=== PATIENT | male | born 1990 | race Caucasian/White ===

== ENCOUNTER 2018-06-09 12:30 | Emergency (ER) | payer SELFPAY ==
[2018-06-09 13:17] VITALS: BP 116/54
[2018-06-09] MEDS ORDERED: Ketorolac INJ* 60 MG/2 ML VIAL IM ONE (14:42)
[2018-06-09] MEDS ORDERED: Ondansetron ODT TAB* 4 MG PO ONE (14:42)
--- NOTE | 2018-06-09 15:05 | UC ---
Headache HPI - HPI Summary HPI Summary: Pt presents with c/o intermittent BECERRA since October 2017. Pt states he has been getting BECERRA aproximately 1-3 times per week but does not take any NSAIDS for pain management. He reports that he has "fuzzy light" with BECERRA and he finds that he becomes sleepy and falls asleep as a way to get rid of the BECERRA. Pt denies, todays BECERRA is the worse one he has ever had, denies, Head injury , denies change of vision. New symptoms over the last 3 days is nausea with onset of todays BECERRA. - History Of Current Complaint Chief Complaint: UCHeadache Stated Complaint: SEVERE HEADACHES Time Seen by Provider: 06/09/18 14:31 Hx Obtained From: Patient Onset/Duration: Gradual Onset, Lasting Hours, Still Present Onset Of Symptoms: Gradual, Still Present Initially Headache Was: Moderate Currently Pain Is: Moderate Pain Intensity: 7 Timing: Intermittent, Lasting:, Hours Character: Dull, Throbbing, Pressure, Migraine Location of Headache: Diffuse Aggravating Factor(s): Position Change Allevating Factor(s): Rest Associated Signs And Symptoms: Positive: Nausea - Risk Factors SAH Risk Factors: Negative Meningitis Risk Factors: Negative SDH Risk Factors: Male - Allergies/Home Medications Allergies/Adverse Reactions: Allergies Allergy/AdvReac Type Severity Reaction Status Date / Time No Known Allergies Allergy Verified 06/09/18 13:17 PMH/Surg Hx/FS Hx/Imm Hx Previously Healthy: Yes - Surgical History Surgical History: Yes Surgery Procedure, Year, and Place: cardiac - Family History Known Family History: Positive: Cardiac Disease - Social History Occupation: Employed Full-time Lives: With Family Alcohol Use: Occasionally Substance Use Type: None Smoking Status (MU): Former Smoker Have You Smoked in the Last Year: No - Immunization History Vaccination Up to Date: No Review of Systems All Other Systems Reviewed And Are Negative: Yes Constitutional: Positive: Negative Skin: Positive: Negative Eyes: Positive: Negative ENT: Positive: Negative Respiratory: Positive: Negative Cardiovascular: Positive: Negative Gastrointestinal: Positive: Negative Genitourinary: Positive: Negative Motor: Positive: Negative Neurovascular: Positive: Negative Musculoskeletal: Positive: Negative Neurological: Positive: Headache Psychological: Positive: Negative Is Patient Immunocompromised?: No Physical Exam Triage Information Reviewed: Yes Appearance: Well-Appearing Vital Signs: Initial Vital Signs Temp 99.8 F 06/09/18 13:14 Pulse 62 02/20/19 13:14 Resp 17 06/09/18 13:14 BP 116/54 06/09/18 13:14 Pulse Ox 100 06/09/18 13:14 Vital Signs Reviewed: Yes Eye Exam: Normal ENT Exam: Normal Dental Exam: Normal Dental: Positive: Abscess @ Neck exam: Normal Respiratory Exam: Normal Cardiovascular Exam: Normal Musculoskeletal Exam: Normal Neurological Exam: Normal Psychological Exam: Normal Skin Exam: Normal Headache Course/Dx - Course Course Of Treatment: Pt reported that he did not feel any better after getting toradol injection. Pt was recommended to go directly to ER for further testing, evaluation and treatment. - Differential Dx/Diagnosis Differential Diagnosis/HQI/PQRI: Migraine Provider Diagnosis: Migraine Discharge - Sign-Out/Discharge Documenting (check all that apply): Patient Departure All imaging exams completed and their final reports reviewed: No Studies - Discharge Plan Condition: Stable Disposition: HOME-RECOMMEND TO ED Prescriptions: Ondansetron HCl [Zofran] 8 mg PO Q8H PRN #15 tablet PRN Reason: Nausea predniSONE TAB* [Deltasone 20 MG TAB*] 20 mg PO DAILY #4 tab Patient Education Materials: Migraine Headache (ED) Forms: *Work Release Referrals: No Primary Care Phys,NOPCP [Primary Care Provider] - Additional Instructions: IT IS RECOMMENDED THAT YOU GO DIRECTLY TO THE CLOSEST EMERGENCY ROOM FOR FURTHER EVALUATION AND TESTING. - Billing Disposition and Condition Condition: STABLE Disposition: Home-Recommend to ED
== END 2018-06-09 15:46 | disposition home health service (06) ==
LOC: UCEAST 12:30
DX: G43.909 Migraine, unspecified, not intractable, without status migrainosus (principal); Z87.891 Personal history of nicotine dependence
CPT/HCPCS: 96372; 99212; A9270-GY; G0463; J1885

== ENCOUNTER 2018-08-19 23:30 | Emergency (ER) | payer SELFPAY ==
--- NOTE | 2018-08-20 00:13 | ED ---
Abdominal Pain/Male - HPI Summary HPI Summary: 28 year old male presents to the emergency department for evaluation of LUQ pain. This problem has been present for a few hours and is constant. Pt describes the pain as "sharp" and "tight" and rates it as an 8/10. Nothing makes the pain and moving makes it worse. Pt also reports a mid epigastric pain that has been present for 1 week and nausea. He denies any fever, vomiting, diarrhea, constipation, dysuria, dark colored urine, SOB, and chest pain. - History of Current Complaint Chief Complaint: EDAbdPain Stated Complaint: SEVERE ABD PAIN PER PT Time Seen by Provider: 08/20/18 00:02 Hx Obtained From: Patient Pain Intensity: 8 - Allergies/Home Medications Allergies/Adverse Reactions: Allergies Allergy/AdvReac Type Severity Reaction Status Date / Time No Known Allergies Allergy Verified 06/09/18 13:17 PMH/Surg Hx/FS Hx/Imm Hx Previously Healthy: Yes - Surgical History Surgery Procedure, Year, and Place: cardiac at age 11 months Infectious Disease History: No Infectious Disease History: Denies: Traveled Outside the [place] in Last 30 Days - Family History Known Family History: Positive: Cardiac Disease - Social History Alcohol Use: Occasionally Substance Use Type: Reports: None Smoking Status (MU): Former Smoker Have You Smoked in the Last Year: No Review of Systems Negative: Fever, Fatigue ENT: Negative Negative: Sore Throat Cardiovascular: Negative Negative: Palpitations, Chest Pain Respiratory: Negative Negative: Shortness Of Breath, Cough Positive: Abdominal Pain, Nausea. Negative: Vomiting, Diarrhea Positive: no symptoms reported. Negative: burning, dysuria, frequency Musculoskeletal: Negative Skin: Negative Negative: Rash Neurological: Negative Negative: Headache, Weakness, Numbness All Other Systems Reviewed And Are Negative: Yes Physical Exam Triage Information Reviewed: Yes Vital Signs On Initial Exam: Initial Vitals Temp Pulse Resp BP Pulse Ox 98.1 F 72 20 116/78 98 08/19/18 23:39 08/19/18 23:39 08/19/18 23:39 08/19/18 23:39 08/19/18 23:39 Vital Signs Reviewed: Yes Appearance: Positive: Well-Appearing, No Pain Distress, Well-Nourished Skin: Positive: Warm, Skin Color Reflects Adequate Perfusion, Dry, Other - Linear surgical scar mid thorax Head/Face: Positive: Normal Head/Face Inspection Eyes: Positive: Normal, EOMI ENT: Positive: Normal ENT inspection, Hearing grossly normal Neck: Positive: Supple, Nontender Respiratory/Lung Sounds: Positive: Clear to Auscultation, Breath Sounds Present Cardiovascular: Positive: Normal, RRR, Pulses are Symmetrical in both Upper and Lower Extremities Abdomen Description: Positive: No Organomegaly, Soft, Other: - Mild epigastric tenderness. Negative: CVA Tenderness (R), CVA Tenderness (L) Bowel Sounds: Positive: Present Musculoskeletal: Positive: Normal, Strength/ROM Intact Neurological: Positive: Normal, Sensory/Motor Intact, Alert, Oriented to Person Place, Time Psychiatric: Positive: Normal, Affect/Mood Appropriate Diagnostics - Vital Signs Vital Signs Temp Pulse Resp BP Pulse Ox 08/19/18 23:39 98.1 F 72 20 116/78 98 - Laboratory Result Diagrams: 08/20/18 00:02 08/20/18 00:02 Lab Statement: Any lab studies that have been ordered have been reviewed, and results considered in the medical decision making process. Abdominal Pain Male Course/Dx - Course Course Of Treatment: Pt presents with diffuse LUQ pain, nausea, and epigastric tenderness. He denies any fever, vomiting, diarrhea, or urinary symptoms. His exam, CBC, and CMP were unremarkable. KUB x-ray is consistent with constipation. Pt given maalox, pepcid, and carafate. He was instructed to drink plenty of fluids, drink natural fruit juices, and perform abdominal massages. Pt to follow up with primary care and return to ED with any new/worsening symptoms. Assessment/Plan: Patient was seen in conjunction with the physician phlebotomy lab assistant student. All history, physical exam findings and medical decision-making represent my work. Patient with left upper quadrant pain and KUB findings consistent with constipation. Treat symptomatically. - Diagnoses Differential Diagnosis/HQI/PQRI: Constipation, Diverticulitis, Pancreatitis, Peptic Ulcer Disease, Renal Colic, Ureteral Stone Provider Diagnoses: Acute constipation, Intermittent left upper quadrant abdominal pain Discharge - Sign-Out/Discharge Documenting (check all that apply): Patient Departure Patient Received Moderate/Deep Sedation with Procedure: No - Discharge Plan Condition: Improved Disposition: HOME Prescriptions: Hyoscyamine Sulfate [Levsin/Sl] 0.125 mg SL Q4H PRN #30 sub PRN Reason: cramping Polyethylene Glycol 3350 BTL* [Miralax] 17 g PO TID PRN #1 btl PRN Reason: Constipation Patient Education Materials: Constipation (ED), High Fiber Diet (ED), Acute Abdominal Pain (ED) Forms: *Work Release Referrals: [facility] [Outside] [facility] [place] [facility] [Outside] Additional Instructions: Drink plenty of fluids. Natural fruit juices such as apple or prune juice may help. Abdominal massage and exercises may help. Return with fever, worse, vomiting, new symptoms or other concerns. Call the [facility] first thing in the morning and they can schedule follow-up appointment for you. - Billing Disposition and Condition Condition: IMPROVED Disposition: Home - Attestation Statements Document Initiated by Prabha: No
[2018-08-20] MEDS ORDERED: Famotidine TAB* 20 MG PO ONE (00:17)
[2018-08-20] MEDS ORDERED: Sucralfate TAB* 1 GM PO ONE (00:18)
[2018-08-20] MEDS ORDERED: Al Hydrox/Mg Hydrox/Simet LIQ* 30 ML UDC PO ONE (00:18)
[2018-08-20 00:19] LABS: ABS Eosinophils 0.1 10^3/ul (0-0.6); ABS Lymphocytes 2.6 10^3/ul (1.0-4.8); ABS Monocytes 0.4 10^3/ul (0-0.8); ABS Neutrophils 2.5 10^3/ul (1.5-7.7); Hematocrit 45 % (42-52); Hemoglobin 15.1 g/dL (14.0-18.0); Lymphocyte % 46.2 %; Mean Corpuscular HGB Conc 34 g/dL (31-36); Mean Corpuscular Hemoglobin 30 pg (27-31); Mean Corpuscular Volume 87 fL (80-94); Mean Platelet Volume 8.4 fL (7.4-10.4); Nucleated Red Blood Cells % 0.1; Platelet Count 230 10^3/uL (150-450); Red Blood Count 5.12 10^6 /uL (4.18-5.48); Red Cell Distribution Width 14 % (10.5-15); White Blood Count 5.7 10^3/uL (3.5-10.8)
[2018-08-20 00:32] LABS: Albumin 4.5 g/dL (3.2-5.2); Albumin/Globulin Ratio 1.9 (1-3); BUN/Creatinine Ratio 14.3 (8-20); Calcium 9.6 mg/dL (8.6-10.3); EGFR African American 103.3 (>60); EGFR Non-African American 85.4 (>60); Globulin 2.4 g/dL (2-4); Potassium 3.8 mmol/L (3.5-5.0); Total Bilirubin 0.7 mg/dL (0.2-1.0); Total Protein 6.9 g/dL (6.4-8.9)
[2018-08-20 01:18] VITALS: BP 141/79
== END 2018-08-20 01:16 | disposition home or self-care (01) ==
LOC: ED 23:30
DX: K59.00 Constipation, unspecified (principal); R10.12 Left upper quadrant pain; R11.0 Nausea; R10.816 Epigastric abdominal tenderness; Z87.891 Personal history of nicotine dependence
CPT/HCPCS: 36415; 74018; 80053; 82150; 83690; 85025; 99282; A9270-GY

== ENCOUNTER 2018-09-01 21:23 | Emergency (ER) | payer SELFPAY ==
[2018-09-01 21:40] VITALS: BP 134/69
[2018-09-01] MEDS ORDERED: Ibuprofen TAB* 600 MG PO ONE (21:40)
[2018-09-01] MEDS ORDERED: HYDROcodone/ACETAMIN 5-325 MG* 1 TAB PO ONE ×2 (21:41→22:25)
--- NOTE | 2018-09-01 21:54 | UC ---
Lower Extremity/Ankle HPI - HPI Summary HPI Summary: 28-year-old male comes in with a chief complaint of left quadriceps pain. Patient was playing softball and he was running any felt sudden onset of pain in the left quadriceps area. Pain is worse with any kind of ambulation. Over the course of 30 minutes the pain increased. No numbness. It hurts excessively try to extend the knee. Some pain up into the left hip the worst pain is in the anterior distal thigh about 10 cm proximal to the knee. Denies any knee pain. - History of Current Complaint Chief Complaint: UCLowerExtremity Stated Complaint: LEG INJURY Time Seen by Provider: 09/01/18 21:33 Pain Intensity: 9 - Allergies/Home Medications Allergies/Adverse Reactions: Allergies Allergy/AdvReac Type Severity Reaction Status Date / Time No Known Allergies Allergy Verified 09/01/18 21:40 PMH/Surg Hx/FS Hx/Imm Hx Previously Healthy: Yes - Surgical History Surgical History: Yes Surgery Procedure, Year, and Place: cardiac at age 11 months - Family History Known Family History: Positive: Cardiac Disease - Social History Alcohol Use: Occasionally Substance Use Type: None Smoking Status (MU): Former Smoker Type: Smokeless Tobacco Have You Smoked in the Last Year: No - Immunization History Vaccination Up to Date: No Review of Systems All Other Systems Reviewed And Are Negative: Yes Constitutional: Positive: Negative Skin: Positive: Negative Eyes: Positive: Negative ENT: Positive: Negative Respiratory: Positive: Negative Cardiovascular: Positive: Negative Gastrointestinal: Positive: Negative Motor: Positive: Decreased ROM Neurovascular: Positive: Negative Musculoskeletal: Positive: Decreased ROM, Other: - SEE HPI Neurological: Positive: Negative Psychological: Positive: Negative Is Patient Immunocompromised?: No Physical Exam Triage Information Reviewed: Yes Appearance: Well-Appearing, Well-Nourished, Pain Distress - MODERATE WITH ROM LEFT LEG Vital Signs: Initial Vital Signs Temp 98.6 F 09/01/18 21:36 Pulse 87 09/01/18 21:36 Resp 17 09/01/18 21:36 BP 134/69 09/01/18 21:36 Pulse Ox 100 09/01/18 21:36 Vital Signs Reviewed: Yes Eye Exam: Normal Eyes: Positive: Conjunctiva Clear Neck: Positive: Supple Respiratory: Positive: No respiratory distress Musculoskeletal: Positive: Other: - Patient is tender to palpation in the left anterior thigh. Also tender to palpation about 10 cm proximal from the left knee. The knee itself is nontender to palpation. The tenderness in the anterior thigh extends all the way up to the hip. With a great deal of pain the patient is able to lift his leg and slightly extend the knee. No sensation deficit normal capillary refill. Neurological: Positive: Alert Psychological Exam: Normal Psychological: Positive: Age Appropriate Behavior Skin Exam: Normal Lower Extremity Course/Dx - Course Course Of Treatment: I discussed the x-rays with the patient. I do not see any fractures radiologist reading is pending. By examination and history of the patient's torn at least part of his quadricep muscle. He was able to raise up his foot with some knee extension so on examination at this time it does not appear to be a complete quadriceps separation. Patient declined any Diego wrap or ice as it isn't too much pain. Patient to get crutches. Plan is anti-inflammatories pain medicines as needed. Follow-up with sports medicine or orthopedics. I let the patient know that if he is not able to extend his knee he must get evaluated right away. - Differential Dx/Diagnosis Provider Diagnosis: Strain of left quadriceps Discharge - Sign-Out/Discharge Documenting (check all that apply): Patient Departure All imaging exams completed and their final reports reviewed: No - Discharge Plan Condition: Stable Disposition: HOME Prescriptions: Cyclobenzaprine TAB* [Flexeril 10 MG TAB*] 10 mg PO TID PRN #15 tab MDD 3 PRN Reason: Pain HYDROcodone/ACETAMIN 5-325 MG* [[place] 5-325 TAB*] 1 tab PO Q4H PRN #30 tab MDD 6 PRN Reason: Pain Ibuprofen TAB* [Motrin TAB* 600 MG] 600 mg PO Q6H PRN #20 tab PRN Reason: Pain Patient Education Materials: Crutch Instructions (ED), Muscle Strain (ED) Forms: *Work Release Referrals: Jean Pierre Martinez MD [Medical Doctor] - [facility] [Provider Group] Additional Instructions: FOLLOW UP WITH SPORTS MEDICINE OR ORTHOPEDICS. GET RECHECKED SOONER IF YOUR CONDITION WORSENS OR ANY QUESTIONS OR CONCERNS. - Billing Disposition and Condition Condition: STABLE Disposition: Home
== END 2018-09-01 22:42 | disposition home or self-care (01) ==
LOC: UCEAST 21:23
DX: S76.112A Strain of left quadriceps muscle, fascia and tendon, initial encounter (principal); Z87.891 Personal history of nicotine dependence; X58.XXXA Exposure to other specified factors, initial encounter; Y93.02 Activity, running; Y92.9 Unspecified place or not applicable
CPT/HCPCS: 99213; A9270-GY; G0463

== ENCOUNTER 2018-10-26 08:33 | Emergency (ER) | payer SELFPAY ==
[2018-10-26 08:51] VITALS: BP 109/60
--- NOTE | 2018-10-26 10:14 | UC ---
Lower Extremity/Ankle HPI - HPI Summary HPI Summary: 28 y/o male presents to the urgent care c/o while running yesterday felt and heard a pop in the back upper thigh and arrives with pain in same - History of Current Complaint Chief Complaint: UCLowerExtremity Stated Complaint: UPPER LEG INJURY Time Seen by Provider: 10/26/18 10:12 Hx Obtained From: Patient Pain Intensity: 8 - Allergies/Home Medications Allergies/Adverse Reactions: Allergies Allergy/AdvReac Type Severity Reaction Status Date / Time No Known Allergies Allergy Verified 10/26/18 08:51 Home Medications: Home Medications NK [No Home Medications Reported] 10/26/18 [History Confirmed 10/26/18] PMH/Surg Hx/FS Hx/Imm Hx - Surgical History Surgical History: Yes Surgery Procedure, Year, and Place: cardiac at age 11 months - Family History Known Family History: Positive: Cardiac Disease - Social History Alcohol Use: Occasionally Substance Use Type: None Smoking Status (MU): Former Smoker Type: Smokeless Tobacco Have You Smoked in the Last Year: No - Immunization History Vaccination Up to Date: No Physical Exam - Summary Physical Exam Summary: Vital Signs Reviewed: Yes Appearance: Well-Appearing, No Pain Distress, Well-Nourished, male sitting in the examining table w/o any apparent pain distress Eyes: Positive: Conjunctiva Clear - PERRLA< RODNEY, fundi grossly WNL ENT: Positive: Normal ENT inspection, Hearing grossly normal, Pharynx normal, TMs normal, Uvula midline Neck: Positive: Supple, Nontender, No Lymphadenopathy Respiratory: Positive: Chest non-tender, Lungs clear, Normal breath sounds, No respiratory distress Cardiovascular: Positive: RRR, No Murmur, Pulses Normal, Brisk Capillary Refill Abdomen Description: Positive: Nontender, No Organomegaly, Soft. Negative: CVA Tenderness (R), CVA Tenderness (L) Bowel Sounds: Positive: Present Extremities: R/L extremity with/without deformity or asymmetry when compared to the R/L. No soft tissue swelling or edema. No overlying erythema, warmth, discoloration. No lesions or break in skin integrity. Diameter of calves cm. Soft tissues of posterior lower legs are soft, supple, nontender and no palpable cords or evidence of thrombophlebitis. No evidence of gangrene or compartment syndrome. Medial thigh is without soft tissue swelling or tender to palpation. Negative Homans sign. Possible superficial thrombophlebitis with palpable, tender cords. No proximal lymphangitis or lymphadenopathy. Positive sensation over B/l lower legs, positive pulses, capillary refill intact and brisk. Neurological Exam: Normal Psychological Exam: Normal Skin Exam: Normal Triage Information Reviewed: Yes Vital Signs: Initial Vital Signs Temp 98.5 F 10/26/18 08:47 Pulse 85 10/26/18 08:47 Resp 16 10/26/18 08:47 BP 109/60 10/26/18 08:47 Pulse Ox 100 10/26/18 08:47 Lower Extremity Course/Dx - Differential Dx/Diagnosis Differential Diagnosis/HQI/PQRI: Contusion, DVT, Fracture (Closed), Sprain, Strain, Tendonitis, Other - muscle tear, hematoma Provider Diagnosis: Right hamstring muscle strain Discharge - Sign-Out/Discharge Documenting (check all that apply): Patient Departure - D/c home All imaging exams completed and their final reports reviewed: No Studies - Discharge Plan Condition: Stable Disposition: HOME Patient Education Materials: Muscle Strain (ED) Forms: *Work Release Referrals: [facility] [place] [facility] [Outside] - 3 Days [facility] [Provider Group] - 3 Days Jean Pierre Conley MD [Medical Doctor] - 3 Days Additional Instructions: 1- Please continue taking [place] or Ibuprofen PO as directed you have at home to alleviate symptoms of pain and swelling 2- Take Flexeril PO as directed for muscle spasm. Please do not drive while taking the medication. 3- Keep your Thigh immobilized w/ Diego bandage and use the crutches you have at home to avoid weight bearing. Avoid strenuous exercise or heavy lifting 4- Please follow up with Orthopedic Dr conley or Sports medicine in 3 days for further management in your muscle strain. If pain becomes sever despite mediation please go immediately to the ER for further management - Billing Disposition and Condition Condition: STABLE Disposition: Home
[2018-10-26] MEDS ORDERED: Ketorolac INJ* 30 MG/ML 1 ML VIAL IM ONE (10:38)
== END 2018-10-26 12:09 | disposition home or self-care (01) ==
LOC: UCEAST 08:33
DX: S76.811A Strain of other specified muscles, fascia and tendons at thigh level, right thigh, initial encounter (principal); X50.0XXA Overexertion from strenuous movement or load, initial encounter; Y93.02 Activity, running; Y92.9 Unspecified place or not applicable; Y99.8 Other external cause status; Z87.891 Personal history of nicotine dependence
CPT/HCPCS: 96372; 99211; G0463; J1885

== ENCOUNTER 2019-01-26 14:00 | Emergency (ER) | payer SELFPAY ==
[2019-01-26 14:12] VITALS: BP 119/71
--- NOTE | 2019-01-26 14:34 | UC ---
Back Pain HPI - HPI Summary HPI Summary: Patient is a 28yo male presenting with back pain x1 hour after he states it twisted when he tried to catch a wheelbarrow he was using that slipped off the sidewalk. Patient notes stabbing pain at first that had turned into a throbbing pain at rest. Notes sharp pain with rapid movement. Notes radiating pain up left side of back. Notes tingling sensation in left lower back. Denies numbness. Denies neck pain. - History of Current Complaint Chief Complaint: UCBackPain Stated Complaint: BACK INJURY Hx Obtained From: Patient Onset/Duration: Sudden Onset, Lasting Hours Timing: Constant Severity Initially: Severe Severity Currently: Severe Pain Intensity: 7 Pain Scale Used: 0-10 Numeric - Allergies/Home Medications Allergies/Adverse Reactions: Allergies Allergy/AdvReac Type Severity Reaction Status Date / Time No Known Allergies Allergy Verified 01/26/19 14:11 PMH/Surg Hx/FS Hx/Imm Hx Previously Healthy: Yes - Surgical History Surgical History: Yes Surgery Procedure, Year, and Place: cardiac at age 11 months - Family History Known Family History: Positive: Cardiac Disease - Social History Alcohol Use: Occasionally Substance Use Type: None Smoking Status (MU): Former Smoker Type: Smokeless Tobacco Have You Smoked in the Last Year: No - Immunization History Vaccination Up to Date: No Review of Systems All Other Systems Reviewed And Are Negative: Yes Constitutional: Positive: Negative Respiratory: Negative: Shortness Of Breath Cardiovascular: Positive: Negative. Negative: Palpitations, Chest Pain Gastrointestinal: Positive: Negative Genitourinary: Positive: Negative Motor: Positive: Negative Neurovascular: Positive: Negative. Negative: Decreased Sensation Musculoskeletal: Positive: Arthralgia, Decreased ROM, Myalgia. Negative: Edema Neurological: Positive: Paresthesia. Negative: Numbness Psychological: Positive: Negative Physical Exam Triage Information Reviewed: Yes Appearance: Well-Appearing, Well-Nourished, Pain Distress Vital Signs: Initial Vital Signs Temp 98 F 01/26/19 14:08 Pulse 78 01/26/19 14:08 Resp 16 01/26/19 14:08 BP 119/71 01/26/19 14:08 Pulse Ox 100 01/26/19 14:08 Vital Signs Reviewed: Yes Eyes: Positive: Conjunctiva Clear ENT: Positive: Hearing grossly normal Neck: Positive: Supple Respiratory Exam: Normal Respiratory: Positive: Chest non-tender, Lungs clear, Normal breath sounds, No respiratory distress, No accessory muscle use. Negative: Crackles, Rhonchi, Stridor, Wheezing Cardiovascular Exam: Normal Cardiovascular: Positive: RRR. Negative: Tachycardia Musculoskeletal: Positive: Strength Intact, No Edema, ROM Limited @ - flexion and extension of hips, Other: - tenderness to palpation of left lumbar and thoracic areas. no midline tenderness to palpation Neurological Exam: Other - sensation grossly intact Neurological: Positive: Alert Psychological: Positive: Age Appropriate Behavior Skin Exam: Normal Diagnostics - Radiology lumbar spine Radiology Interpretation Completed By: Radiologist Summary of Radiographic Findings: FINDINGS: There is a mild lumbar scoliosis convex toward the left side. The vertebra otherwise in normal alignment. No fracture is seen. Disc spaces appear maintained. IMPRESSION: NO EVIDENCE FOR FRACTURE. thoracic spine Radiology Interpretation Completed By: Radiologist Summary of Radiographic Findings: FINDINGS: There is a mild dorsal scoliosis convex toward the right side as a normal limits. No fracture is seen. Disc spaces appear maintained. IMPRESSION: NO EVIDENCE FOR FRACTURE. Back Pain Course/Dx - Course Course Of Treatment: Discussed negative xrays with patient. Instructed him to take flexeril as prescribed for muscle spasms. He may also ice, heat, and take ibuprofen as directed for pain relief. Educated patient on flexeril and possible drowsiness. Instructed him to reduce his work load and physical activity while pain is present. Directed him to follow up with ortho if pain persists. Patient voiced understanding and agreed to the treatment plan. - Differential Dx/Diagnosis Provider Diagnosis: Low back strain Discharge ED - Sign-Out/Discharge Documenting (check all that apply): Patient Departure All imaging exams completed and their final reports reviewed: Yes - Discharge Plan Condition: Stable Disposition: HOME Prescriptions: Cyclobenzaprine TAB* [Flexeril 10 MG TAB*] 10 mg PO TID PRN #30 tab PRN Reason: Spasms Patient Education Materials: Low Back Strain (ED) Forms: *Work Release Referrals: [facility] [place] [facility] [Outside] - If Needed [facility] [Outside] - If Needed Jean Pierre Edwards MD [Medical Doctor] - If Needed Additional Instructions: As discussed, your xrays did not show any fractures. Take Flexeril as prescribed for muscle spasms. This drug may make you drowsy. Rest, ice, heat, and take ibuprofen as directed to help alleviate pain symptoms. Refrain from strenuous physical activity until pain has resolved. If symptoms persist or worsen, follow up with the [facility] or Orthopedics as listed below. - Billing Disposition and Condition Condition: STABLE Disposition: Home
== END 2019-01-26 15:30 | disposition home or self-care (01) ==
LOC: UCEAST 14:00
DX: S29.012A Strain of muscle and tendon of back wall of thorax, initial encounter (principal); Z87.891 Personal history of nicotine dependence; X50.1XXA Overexertion from prolonged static or awkward postures, initial encounter; Y92.9 Unspecified place or not applicable
CPT/HCPCS: 72070; 72100; 99212; G0463

== ENCOUNTER 2019-02-01 14:34 | Emergency (ER) | payer SELFPAY ==
--- OUTSIDE RECORDS SUMMARY | 2019-02-01 14:40 | XMS REPORT | Summary of Care ---
:[address] [facility] Address [address] [place] [address] Care Team Providers Name Role Phone Stated, Not Primary Care Provider Unavailable Reason for Referral Diagnostic Testing (Routine) Status Reason Specialty Diagnoses / Referred By Referred To Procedures Contact Contact Pending Review Diagnoses Status post atrial septal defect closure Dilated aortic root (HCC) Alexei, Procedures ECHOCARDIOGRAM TTE MD Brennen [address] [place] [address] Reason for Visit Reason Comments New Patient Pt. referred by Dr. Malgorzata Macario for Hx of Atrial Septal Defect Repair at 11 months old. Repaired at [facility] By Pedro Melton. Pt. seen also by Dr. Huertas. Pt. needs clearance for [facility] for entry to the [employer]. Encounter Details Date Type Department Care Team Description 01/20/2019 Office Visit Javier Linda, Status post atrial septal defect closure (Primary Dx); Cardiology MD Brennen Dilated aortic root (HCC); [address] [facility] RBBB (right bundle branch block) [place] [address] [place] [address] [phone] Allergies No Known Allergiesdocumented as of this encounter (statuses as of 01/20/2019) Medications No known medicationsdocumented as of this encounter (statuses as of 01/20/2019) Active Problems Problem Noted Date H/O congenital atrial septal defect (ASD) repair 01/20/2019 RBBB (right bundle branch block) 01/20/2019 Unspecified asthma(493.90) 07/22/2007 Injury, other and unspecified, unspecified site 08/05/2006 Other general symptoms(780.99) 01/03/2004 documented as of this encounter (statuses as of 01/20/2019) Immunizations Name Administration Dates Next Due DTAP Vaccine 12/29/1996, 09/24/1993, 03/07/1993, 1992, 1992 HIB 09/24/1993, 03/07/1993, 1992, 1992 Hepatitis B Vaccine 06/18/1993, 1992, 1992 MENINGOCOCCAL CONJUGATE VACCINE 12/09/2005 MMR VACCINE 12/29/1996, 09/24/1993 Polio - Inactivated Vaccine 12/29/1996, 09/24/1993, 1992, 1992 TDAP Vaccine 12/09/2005 documented as of this encounter Social History Tobacco Use Types Packs/Day Years Used Date Passive Smoke Exposure - Never Smoker 0 Smokeless Tobacco: Current User Chew Comments: 20 years Alcohol Use Drinks/Week oz/Week Comments Yes Rare Sex Assigned at Date Recorded Not on file Job Start Date Occupation Industry Not on file Not on file Not on file Travel History Travel Start Travel End No recent travel history available. documented as of this encounter Last Filed Vital Signs Vital Sign Reading Time Taken Comments Blood Pressure 108/58 01/20/2019 9:09 AM EDT Pulse 76 01/20/2019 9:09 AM EDT Temperature - - Respiratory Rate - - Oxygen Saturation - - Inhaled Oxygen Concentration - - Weight 97.5 kg (215 lb) 01/20/2019 9:09 AM EDT Height 185.4 cm (6' 1") 01/20/2019 9:09 AM EDT Body Mass Index 28.37 01/20/2019 9:09 AM EDT documented in this encounter Patient Instructions Patient InstructionsBrennen Linda MD - 01/20/2019 9:00 AM EDT No new medications today. Schedule an echocardiogram as we discussed. Assuming the echo looks good, there is no reason you can't participate in the [employer]. We'll hold off on scheduling follow up with me, but if you're still in the area a year from now, I'd recommend checking in around then. documented in this encounter Progress Notes Brennen Linda MD - 01/20/2019 9:00 AM EDT [facility] Note Patient: Ben Snider Date of : 1990 Date of Service: 01/20/2019 REFERRING PRACTITIONER: Malgorzata Macario PRIMARY CARE PROVIDER: Stated, Not Chief Complaint: Chief Complaint Patient presents with New Patient Pt. referred by Dr. Malgorzata Macario for Hx of Atrial Septal Defect Repair at 11 months old. Repaired at [facility] By Pedro Melton. Pt. seen also by Dr. Huertas. Pt. needs clearance for [facility] for entry to the [employer]. History of Present Illness: We had the pleasure of seeing Ben Snider today at the [facility] Cardiology Office. He is a 28-y.o. male with childhood asthma and large secundum ASD s/p suture repair by Dr. Vasquez at [facility] 03/18/1993 at the age of 11 months. He also has a chronic RBBB/LAFB and upper normal aortic root size by echo. Mr. Snider presents to cardiology clinic today for further evaluation of his congenital ASD s/p repair. He has a history as noted above, and has followed by Dr. Huertas for many years. He says that he last saw Dr. Huertas about a year ago and was cleared for the [employer] at that time. He also reports that he recently had PFTs done a few months ago and these were completely normal. 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 From a symptom standpoint, he reports feeling well. He played football, baseball, and did wrestlingin high school and had no problems with strenuous exertion. He remains physically active and does running and MMA without any CP or limiting dyspnea. Denies any palpitations, lightheadedness, or syncope. No orthopnea, paroxysmal dyspnea, or lower extremity edema. Had pretty significant asthma as a child but hasn't needed any therapy for that for many years. Patient Active Problem List Diagnosis Other general symptoms(780.99) Injury, other and unspecified, unspecified site Unspecified asthma(493.90) H/O congenital atrial septal defect (ASD) repair RBBB (right bundle branch block) Past Medical History: Diagnosis Date ADD (attention deficit disorder) past hx Asthma H/O congenital atrial septal defect (ASD) repair 01/20/2019 Ostium secundum type atrial septal defect s/p repair - sees ced RBBB (right bundle branch block) 01/20/2019 Past Surgical History: Procedure Laterality Date CO CARDIOVASC NUCL EXAM UNLISTED repair asd CO NUCLEAR EXAM UNLISTED blood vessel removed from penis No Known Allergies No current outpatient medications on file. No current facility-administered medications for this visit. Family History Problem Relation Age of Onset Heart No family history Social History Socioeconomic History Marital status: Single Spouse name: Not on file Number of children: Not on file Years of education: Not on file Highest education level: Not on file Occupational History Not on file Social Needs Financial resource strain: Not on file Food insecurity: Worry: Not on file Inability: Not on file Transportation needs: Medical: Not on file Non-medical: Not on file Tobacco Use Smoking status: Passive Smoke Exposure - Never Smoker Smokeless tobacco: Current User Types: Chew Tobacco comment: 20 years Substance and Sexual Activity Alcohol use: Yes Comment: Rare Drug use: No Sexual activity: Not on file Lifestyle Physical activity: Days per week: Not on file Minutes per session: Not on file Stress: Not on file Relationships Social connections: Talks on phone: Not on file Gets together: Not on file Attends mosque service: Not on file Active member of club or organization: Not on file Attends meetings of clubs or organizations: Not on file Relationship status: Not on file Intimate partner violence: Fear of current or ex partner: Not on file Emotionally abused: Not on file Physically abused: Not on file Forced sexual activity: Not on file Other Topics Concern Not on file Social History Narrative Lives with brother, sister, mother, mom's boyfriend Nursing Notes: Madhavi Timmons LPN 01/20/2019 9:11 AM Signed PATIENT: Ben Snider : 1990 DATE OF SERVICE: 01/20/2019 CARDIOLOGY AMBULATORY NURSING INTAKE FORM HISTORY COLLECTED BY CLINICAL STAFF: GRAYSON REVIEW OF SYSTEMS: GENERAL: Fever: no Weight loss/gain: no Fatigue: no Recent febrile illness: no NEUROLOGIC: Headache: no Syncope: no CVA/TIA: no Change in sensation: no CARDIOVASCULAR: Chest Pain: no Palpitations: no Orthopnea: no Rheumatic Fever (history of): no Edema: no RESPIRATORY: Cough: no Shortness Of Breath: no Hemoptysis: no Underlying Lung Disease: no GASTROINTESTINAL: Nausea: no Vomiting: no Constipation: no Diarrhea: no Melena: no PUD (history of): no Hematemesis: no Gastrointestinal Disorder: no GENITOURINARY: Hematuria: no Urinary Tract Infection(s): no Nocturia: no Prostate Problem(s): no HEMATOLOGIC: Easy bruising: no Bleeding: no MUSCULOSKELETAL/PERIPHERAL VASCULAR SYSTEM: Muscle Pain: no Muscle Cramping: no Stiffness: no Muscle Weakness: no BEHAVIORAL/PSYCH: Depression: no ENDOCRINE: Tremors: no Heat or cold intolerance: no Author: Madhavi Timmons LPN 01/20/2019 09:08 I have reviewed the ROS obtained by my nurse and concur as detailed above. Physical Exam: Vitals: 01/20/19 0909 BP: 108/58 BP Location: Right arm Patient Position: Sitting Pulse: 76 Weight: 215 lb (97.5 kg) Height: 6' 1" (1.854 m) Body mass index is 28.37 kg/m. General: Well nourished, alert 28-y.o. male in [facility] HEENT: anicteric, MMM, no E/E OP, conj pink Neck: JVP approx 4-5 cm above RA, no carotid bruits or LAD CV: RRR, normal s1/s2, no appreciable murmurs, rubs, or gallops. Sternotomy scar noted. Pulm: CTA bilaterally without wheezes, rhonchi, or rales. No increased work of breathing. Abd: soft, NT, ND, +BS. No appreciable pulsatile masses or bruits. Ext: no lower extremity edema, no cyanosis, no cords, redness, or warmth, 2+ distal pulses Neuro: no gross focal deficits Skin: no visible lesions Labs: Lab Results Component Value Date NA 138 05/13/2018 K 3.8 05/13/2018 CL 103 05/13/2018 CO2 21 (L) 05/13/2018 GLUCOSE 94 05/13/2018 BUN 14 05/13/2018 CREATININE 0.9 05/13/2018 CALCIUM 9.9 05/13/2018 TP 7.6 05/13/2018 ALBUMIN 4.9 05/13/2018 AST 32 05/13/2018 ALT 44 05/13/2018 ALK 42 05/13/2018 TBILI 0.7 05/13/2018 EGFR >60 05/13/2018 Lab Results Component Value Date NT PRO BNP 38 05/13/2018 No results found for: CHOL, TRIG, HDL, LDL, LDLHDLRATIO, CHOLHDLRATIO Cardiac Studies: EKG Today (I personally reviewed): NSR in 70s. RBBB and LAFB. TTE at Dr. Huertas's office 06/11/2012: -No residual ASD shunting -Aortic root 38-40mm -Normal size mid-ascending aorta. -Mild prominence of coronary sinus. -Normal chamber sizes and normal ventricular wall features. Assessment & Plan: Ben Snider is a 28-y.o. male with childhood asthma and large secundum ASD s/p suture repair by Dr. Vasquez at [facility] 03/18/1993 at the age of 11 months. He also has a chronic RBBB/LAFBand upper normal aortic root size by echo. ICD-9-CM ICD-10-CM 1. Status post atrial septal defect closure V13.65 Z87.74 ECHOCARDIOGRAM TTE 2. Dilated aortic root (HCC) 447.71 I77.810 ECHOCARDIOGRAM TTE 3. RBBB (right bundle branch block) 426.4 I45.10 1. Congenital ASD s/p Surgical Repair: Patient is doing quite well clinically, and there has been noecho evidence of residual shunting for many years. His exam today is unremarkable. Will proceed asfollows: I've ordered a TTE with saline contrast bubble study today. Assuming the echo looks good/unchanged from prior, then he is cleared to participate fully in the [employer] without any physical activity restrictions. I did recommend that he follow up periodically (every 2-3 years) with a senior windows engineer throughouthis adult life to ensure he develops no changes and to keep an eye on his aortic root size and EKG. Prior echoes have noted mild dilation of his coronary sinus. This may indicate a persistent left-sided SVC, which is of no clinical significance in his case. At some point a cMRI may be worth doing, but there is no indication to do that at this time. 2. Chewing Tobacco Use: He's been working on cutting back on this, and I strongly recommended that he try to stop completely. I suggested that he try NRT with gum/lozenges to replace the few dips per day he's been currently using. Thank you for allowing me to participate in the care of Ben Snider. We have not scheduledroutine f/u in our office because he's planning to move out of the area, but He can certainly returnat any time if he decides to stay in the area. If you have any questions or concerns please feel free to call our office at . Brennen Linda MD, 01/20/2019, 09:51 documented in this encounter Plan of Treatment Name Type Priority Associated Diagnoses Order Schedule ECHOCARDIOGRAM TTE CV Lab Routine Status post atrial septal Expected: 01/20 defect closure (Approximate), Expires: Dilated aortic root (HCC) 02/24/2020 Health Maintenance Due Date Last Done Comments DEPRESSION SCREENING 2004 HIV SCREENING 2007 INFLUENZA VACCINE (#1) 2018 MENINGOCOCCAL VACCINE IMM Aged Out 12/09/2005 No longer eligible based on patient's age to complete this topic HPV IMMUNIZATION SERIES Aged Out No longer eligible based on patient's age to complete this topic PNEUMOCOCCAL 0-64 YRS Aged Out No longer eligible based on patient's age to complete this topic documented as of this encounter Results Not on filedocumented in this encounter Visit Diagnoses Diagnosis Status post atrial septal defect closure - Primary Other postprocedural status Dilated aortic root (HCC) Thoracic aortic ectasia RBBB (right bundle branch block) Right bundle branch block documented in this encounter
[2019-02-01 15:12] VITALS: BP 117/65
--- NOTE | 2019-02-01 16:18 | UC ---
Back Pain HPI - History of Current Complaint Chief Complaint: UCBackPain Stated Complaint: BACK PAIN FOLLOW UP Time Seen by Provider: 02/01/19 16:17 Pain Intensity: 6 - Allergies/Home Medications Allergies/Adverse Reactions: Allergies Allergy/AdvReac Type Severity Reaction Status Date / Time No Known Allergies Allergy Verified 01/26/19 14:11 PMH/Surg Hx/FS Hx/Imm Hx - Surgical History Surgical History: Yes Surgery Procedure, Year, and Place: cardiac at age 11 months - Family History Known Family History: Positive: Cardiac Disease - Social History Alcohol Use: Occasionally Substance Use Type: None Smoking Status (MU): Former Smoker Type: Smokeless Tobacco Have You Smoked in the Last Year: No - Immunization History Vaccination Up to Date: No Physical Exam Vital Signs: Initial Vital Signs Temp 97.9 F 02/01/19 15:07 Pulse 82 02/01/19 15:07 Resp 18 02/01/19 15:07 BP 117/65 02/01/19 15:07 Pulse Ox 99 02/01/19 15:07 Discharge ED - Discharge Plan Referrals: No Primary Care Phys,NOPCP [Primary Care Provider] -
--- NOTE | 2019-02-01 16:29 | UC ---
Back Pain HPI - HPI Summary HPI Summary: the patient is a 28-year-old male that injured his lower back on or about 2018. He was seen here for evaluation and received x-rays, and was referred to an orthopedist. He presents here requesting that he get referred to the occupational physician. He has not yet been able to return to work due to the pain. He has significant muscle spasm and pain. He has not taken the muscle relaxant. He takes Tylenol for the pain. He has significant difficulty getting up from a laying down or seated position. He has pain with bending and twisting. He has no bowel or bladder dysfunction. He denies any prior history of back pain. - History of Current Complaint Chief Complaint: UCBackPain Stated Complaint: BACK PAIN FOLLOW UP Time Seen by Provider: 02/01/19 16:17 Hx Obtained From: Patient Onset/Duration: Sudden Onset, Lasting Days Timing: Constant Severity Initially: Moderate Severity Currently: Moderate Pain Intensity: 6 Pain Scale Used: 0-10 Numeric Back Pain: Is Discrete @ - see image Character: Aching, Throbbing, Spasmodic Aggravating Factor(s): Movement, Lifting, Bending Alleviating Factor(s): Rest Associated Signs And Symptoms: Positive: Negative Related History: Occupational Injury Full Body (No Head): 1 - pain/spasm here 2 - radiates here - Allergies/Home Medications Allergies/Adverse Reactions: Allergies Allergy/AdvReac Type Severity Reaction Status Date / Time No Known Allergies Allergy Verified 01/26/19 14:11 PMH/Surg Hx/FS Hx/Imm Hx Previously Healthy: Yes - Surgical History Surgical History: Yes Surgery Procedure, Year, and Place: cardiac at age 11 months - Family History Known Family History: Positive: Cardiac Disease - Social History Alcohol Use: Occasionally Substance Use Type: None Smoking Status (MU): Former Smoker Type: Smokeless Tobacco Have You Smoked in the Last Year: No - Immunization History Vaccination Up to Date: No Review of Systems All Other Systems Reviewed And Are Negative: Yes Constitutional: Positive: Negative Skin: Positive: Negative Eyes: Positive: Negative ENT: Positive: Negative Respiratory: Positive: Negative Cardiovascular: Positive: Negative Gastrointestinal: Positive: Negative Genitourinary: Positive: Negative Motor: Positive: Negative Neurovascular: Positive: Negative Musculoskeletal: Positive: Myalgia - left paraspinous muscle Neurological: Positive: Negative Psychological: Positive: Negative Physical Exam Triage Information Reviewed: Yes Appearance: Well-Appearing, No Pain Distress, Well-Nourished Vital Signs: Initial Vital Signs Temp 97.9 F 02/01/19 15:07 Pulse 82 02/01/19 15:07 Resp 18 02/01/19 15:07 BP 117/65 02/01/19 15:07 Pulse Ox 99 02/01/19 15:07 Vital Signs Reviewed: Yes Eyes: Positive: Conjunctiva Clear ENT: Positive: Hearing grossly normal. Negative: Nasal drainage, TMs normal, Tonsillar swelling, Tonsillar exudate, Trismus, Muffled voice, Hoarse voice Neck: Positive: Supple, Nontender, No Lymphadenopathy Respiratory: Positive: Lungs clear, Normal breath sounds, No respiratory distress, No accessory muscle use Cardiovascular: Positive: RRR, No Murmur Bowel Sounds: Positive: Present Musculoskeletal: Positive: ROM Intact, No Edema Neurological: Positive: Alert Psychological Exam: Normal Skin Exam: Normal Back Pain Course/Dx - Differential Dx/Diagnosis Provider Diagnosis: Acute lumbar myofascial strain Discharge ED - Sign-Out/Discharge Documenting (check all that apply): Patient Departure All imaging exams completed and their final reports reviewed: No Studies - Discharge Plan Condition: Stable Disposition: HOME Patient Education Materials: Low Back Strain (ED) Forms: *Work Release Referrals: Burt Sweet MD [Medical Doctor] - As Soon As Possible Additional Instructions: PT consult aleve - Billing Disposition and Condition Condition: STABLE Disposition: Home
== END 2019-02-01 16:35 | disposition home or self-care (01) ==
LOC: UCEAST 14:34
DX: S39.012A Strain of muscle, fascia and tendon of lower back, initial encounter (principal); Z87.891 Personal history of nicotine dependence; X58.XXXA Exposure to other specified factors, initial encounter; Y92.9 Unspecified place or not applicable
CPT/HCPCS: 99211; G0463

== ENCOUNTER 2019-03-31 17:10 | Emergency (ER) | payer BC, OTHER ==
[2019-03-31 19:45] LABS: ABS Eosinophils 0.1 10^3/ul (0-0.6); ABS Lymphocytes 2.4 10^3/ul (1.0-4.8); ABS Monocytes 0.4 10^3/ul (0-0.8); ABS Neutrophils 2.8 10^3/ul (1.5-7.7); Eosinophil % 1.5 %; Hematocrit 42 % (42-52); Hemoglobin 14.9 g/dL (14.0-18.0); Lymphocyte % 42.7 %; Mean Corpuscular HGB Conc 36 g/dL (31-36); Mean Corpuscular Hemoglobin 30 pg (27-31); Mean Corpuscular Volume 84 fL (80-94); Mean Platelet Volume 8.1 fL (7.4-10.4); Platelet Count 209 10^3/uL (150-450); Red Blood Count 4.97 10^6 /uL (4.18-5.48); Red Cell Distribution Width 14 % (10-15); White Blood Count 5.7 10^3/uL (3.5-10.8)
[2019-03-31] MEDS ORDERED: NS 0.9% 1000 ML** 1,000 ML IV ONE (19:47)
[2019-03-31] MEDS ORDERED: Ondansetron INJ* 2 MG/ML VIAL IV ONE (19:47)
--- NOTE | 2019-03-31 19:52 | ED ---
HPI Chest Pain - HPI Summary HPI Summary: 28 year old male presents with numbness and tingling in his chest. He states it in the center of his chest. He states occasionally radiates to his arm. He admits to nausea. No vomiting. There is no shortness breath. No palpitations. He states he feels off. He's never had this before. Does have a history of heart surgery when he was younger for a hole in his heart. He states he feels off. He denies any family history of cardiac disease. No recent travel. No pain or swelling in calf muscles. No abdominal pain. no recent travel. Is nonsmoker. - History of Current Complaint Chief Complaint: EDChestWallPain Time Seen by Provider: 03/31/19 19:27 Pain Intensity: 0 - Allergy/Home Medications Allergies/Adverse Reactions: Allergies Allergy/AdvReac Type Severity Reaction Status Date / Time No Known Allergies Allergy Verified 01/26/19 14:11 Home Medications: Home Medications NK [No Home Medications Reported] 03/31/19 [History Confirmed 03/31/19] PMH/Surg Hx/FS Hx/Imm Hx Endocrine/Hematology History: Denies: Hx Anticoagulant Therapy Cardiovascular History: Reports: Other Cardiovascular Problems/Disorders - open heart surgery as Respiratory History: Denies: Hx Asthma - Surgical History Surgery Procedure, Year, and Place: cardiac at age 11 months Infectious Disease History: No Infectious Disease History: Denies: Traveled Outside the [place] in Last 30 Days - Family History Known Family History: Positive: Cardiac Disease - Social History Alcohol Use: Rare Substance Use Type: Reports: None Smoking Status (MU): Former Smoker Type: Smokeless Tobacco Have You Smoked in the Last Year: No Review of Systems Negative: Fever Positive: Chest Pain Negative: Shortness Of Breath Positive: Nausea Positive: Paresthesia All Other Systems Reviewed And Are Negative: Yes Physical Exam Triage Information Reviewed: Yes Vital Signs On Initial Exam: Initial Vitals Temp Pulse Resp BP Pulse Ox 97.7 F 66 16 145/68 100 03/31/19 17:18 03/31/19 17:18 03/31/19 17:18 03/31/19 17:18 03/31/19 17:18 Vital Signs Reviewed: Yes Appearance: Positive: Well-Appearing Skin: Positive: Warm, Dry Head/Face: Positive: Normal Head/Face Inspection Eyes: Positive: Normal, Conjunctiva Clear ENT: Positive: Pharynx normal Respiratory/Lung Sounds: Positive: Clear to Auscultation, Breath Sounds Present Cardiovascular: Positive: Normal, RRR Abdomen Description: Positive: Nontender, Soft Bowel Sounds: Positive: Present Musculoskeletal: Positive: Normal Neurological: Positive: Sensory/Motor Intact, Alert, Oriented to Person Place, Time, CN Intact II-III Psychiatric: Positive: Normal Procedures - Sedation Patient Received Moderate/Deep Sedation with Procedure: No Diagnostics - Vital Signs Vital Signs Temp Pulse Resp BP Pulse Ox 03/31/19 17:18 97.7 F 66 16 145/68 100 - Laboratory Lab Results: Lab Results 03/31/19 Range/Units 19:39 WBC 5.7 (3.5-10.8) 10^3/uL RBC 4.97 (4.18-5.48) 10^6 /uL Hgb 14.9 (14.0-18.0) g/dL Hct 42 (42-52) % MCV 84 (80-94) fL MCH 30 (27-31) pg MCHC 36 (31-36) g/dL RDW 14 (10-15) % Plt Count 209 (150-450) 10^3/uL MPV 8.1 (7.4-10.4) fL Neut % (Auto) 48.6 % Lymph % (Auto) 42.7 % [place] % (Auto) 6.7 % Eos % (Auto) 1.5 % Baso % (Auto) 0.5 % Absolute Neuts (auto) 2.8 (1.5-7.7) 10^3/ul Absolute Lymphs (auto) 2.4 (1.0-4.8) 10^3/ul Absolute Monos (auto) 0.4 (0-0.8) 10^3/ul Absolute Eos (auto) 0.1 (0-0.6) 10^3/ul Absolute Basos (auto) 0.0 (0-0.2) 10^3/ul Absolute Nucleated RBC 0.0 10^3/ul Nucleated RBC % 0.0 Result Diagrams: 03/31/19 19:39 03/31/19 19:39 Lab Statement: Any lab studies that have been ordered have been reviewed, and results considered in the medical decision making process. - Radiology chest Radiology Interpretation Completed By: ED Physician Summary of Radiographic Findings: no active disease - EKG No standard instances Cardiac Rate: NL EKG Rhythm: Sinus Rhythm Summary of EKG Findings: sinus rhythm, RBBB Re-Evaluation - Re-Evaluation First Eval Re-Evaluation Time: 21:06 Change: Improved Comment: feeling better, states that this is the pain he gets when has bronchitis. Second Eval Re-Evaluation Time: 21:30 Change: Unchanged Comment: no chest pain, doesnt want to wait for second troponin. heart score 1. Chest Pain Course/Dx - Course Course Of Treatment: 28 year old male presents with numbness and tingling in his chest. He states it in the center of his chest. He states occasionally radiates to his arm. He admits to nausea. No vomiting. There is no shortness breath. No palpitations. He states he feels off. He's never had this before. Does have a history of heart surgery when he was younger for a hole in his heart. He states he feels off. He denies any family history of cardiac disease. No recent travel. No pain or swelling in calf muscles. No abdominal pain. no recent travel. Is nonsmoker. On exam has normal neuro exam. lungs CTA. Heart regular rate and rhythm. nonreproducible chest pain. EKG shows sinus rhythm with right bundle-branch block. wbc normal. Troponin 0. CRP normal. D-dimer neg. patient states that feels like he may be getting bronchitis. heart score 1. patient declined second troponin but is low risk. patient understand and agrees with plan. - Chest Pain Differential Diagnosis/HQI/PQRI: Angina, Chest Wall, Pulmonary Embolism - Diagnoses Provider Diagnoses: Atypical chest pain Discharge ED - Sign-Out/Discharge Documenting (check all that apply): Patient Departure - Discharge Plan Condition: Good Disposition: HOME Forms: *Gen. Provider Communication, *Work Release Referrals: No Primary Care Phys,NOPCP [Primary Care Provider] - Additional Instructions: follow up with primary within 5 days Return to ED if develop any new or worsening symptoms - Billing Disposition and Condition Condition: GOOD Disposition: Home
[2019-03-31 20:13] LABS: Troponin I 0.01 ng/mL (<0.03)
[2019-03-31 20:18] LABS: Albumin 4.5 g/dL (3.2-5.2); Albumin/Globulin Ratio 1.7 (1-3); BUN/Creatinine Ratio 15.4 (8-20); C Reactive Protein 1.31 mg/L (<8.01); Calcium 9.2 mg/dL (8.6-10.3); EGFR African American 104.5 (>60); EGFR Non-African American 86.3 (>60); Globulin 2.6 g/dL (2-4); Potassium 3.7 mmol/L (3.5-5.0); Total Bilirubin 0.5 mg/dL (0.2-1.0); Total Protein 7.1 g/dL (6.4-8.9)
[2019-03-31 21:59] VITALS: BP 117/68
== END 2019-03-31 21:57 | disposition home or self-care (01) ==
LOC: ED 17:10
DX: R07.89 Other chest pain (principal); Z87.891 Personal history of nicotine dependence
CPT/HCPCS: 36415; 71045; 80053; 83605; 83690; 83880; 84484; 85025; 85379; 86140; 93005; 96361; 96374; 99283; J2405

== ENCOUNTER 2019-04-16 21:56 | Emergency (ER) | payer BC ==
[2019-04-16] MEDS ORDERED: Albuterol/Ipratropium NEB.SOL* Albuterol 2.5 MG/Ipratropium 0.5 MG 3 ML INH ONE (22:07)
[2019-04-16] MEDS ORDERED: Dexamethasone TAB* 4 MG PO ONE (22:13)
--- NOTE | 2019-04-16 22:48 | ED ---
Respiratory - HPI Summary HPI Summary: 28 year male presents with shortness of breath for the past 4 days. He has a history of childhood asthma but had a normal pft in summer. States no fam hx of PE, no recent travel and is not a smoker. no pain or swelling in his calf muscles. He admits to wheezes and chest tightness when he coughs. cough has been productive and dry cough. He denies abdominal pain. No nausea or vomiting. He admits to sinus congestion and a sore throat. no one else is sick. Does not smoke or vape. has history of heart surgery when was baby that was cleared from. - History of Current Complaint Chief Complaint: EDUpperRespComplaint Stated Complaint: SOB PER PT Time Seen by Provider: 04/16/19 22:04 Pain Intensity: 6 Sputum Amount: None - Allergy/Home Medications Allergies/Adverse Reactions: Allergies Allergy/AdvReac Type Severity Reaction Status Date / Time No Known Allergies Allergy Verified 04/16/19 22:01 PMH/Surg Hx/FS Hx/Imm Hx Endocrine/Hematology History: Denies: Hx Anticoagulant Therapy Cardiovascular History: Reports: Other Cardiovascular Problems/Disorders - open heart surgery as infant Respiratory History: Reports: Hx Asthma - childhood - Surgical History Surgery Procedure, Year, and Place: cardiac at age 11 months - Immunization History Date of Influenza Vaccine: fall Infectious Disease History: No Infectious Disease History: Denies: Traveled Outside the [place] in Last 30 Days - Family History Known Family History: Positive: Cardiac Disease - Social History Alcohol Use: Occasionally Substance Use Type: Reports: None Hx Tobacco Use: No Smoking Status (MU): Former Smoker Type: Smokeless Tobacco Have You Smoked in the Last Year: No Review of Systems Negative: Fever Positive: Shortness Of Breath, Cough Negative: Abdominal Pain All Other Systems Reviewed And Are Negative: Yes Physical Exam Triage Information Reviewed: Yes Vital Signs On Initial Exam: Initial Vitals Temp Pulse Resp BP Pulse Ox 98.1 F 92 20 121/77 96 04/16/19 21:58 04/16/19 21:58 04/16/19 21:58 04/16/19 21:58 04/16/19 21:58 Vital Signs Reviewed: Yes Appearance: Positive: Well-Appearing Skin: Positive: Warm, Dry Head/Face: Positive: Normal Head/Face Inspection Eyes: Positive: Normal, EOMI, BRET, Conjunctiva Clear ENT: Positive: Pharynx normal, TMs normal Respiratory/Lung Sounds: Positive: Decreased Breath Sounds, Wheezes Cardiovascular: Positive: Normal, RRR Abdomen Description: Positive: Nontender, Soft Bowel Sounds: Positive: Present Musculoskeletal: Positive: Normal Neurological: Positive: Normal Psychiatric: Positive: Normal Procedures - Sedation Patient Received Moderate/Deep Sedation with Procedure: No Diagnostics - Vital Signs Vital Signs Temp Pulse Resp BP Pulse Ox 04/16/19 22:38 86 20 99 04/16/19 22:37 24 04/16/19 21:58 98.1 F 92 20 121/77 96 - Laboratory Lab Statement: Any lab studies that have been ordered have been reviewed, and results considered in the medical decision making process. - Radiology chest Radiology Interpretation Completed By: ED Physician Summary of Radiographic Findings: possible inflitrate right middle lobe Re-Evaluation - Re-Evaluation First Eval Re-Evaluation Time: 23:14 Change: Improved Comment: feeling better, lungs CTA Disposition - Course Course Of Treatment: 28 year male presents with shortness of breath for the past 4 days. He has a history of childhood asthma but had a normal pft in summer. States no fam hx of PE, no recent travel and is not a smoker. no pain or swelling in his calf muscles. He admits to wheezes and chest tightness when he coughs. cough has been productive and dry cough. He denies abdominal pain. No nausea or vomiting. He admits to sinus congestion and a sore throat. no one else is sick. Does not smoke or vape. has history of heart surgery when was baby that was cleared from. On exam wheezes decreased breath sounds. He is tachypneic. gave breathing treatment and decadron with improvement. chest xray shows possible pneumonia so will treat with azithromycin. told to follow up with primary. patient understand and agrees with plan. - Differential Dx - Cardiopulmonary Differential Diagnoses - Cardiopulmonary: Bronchitis, Influenza, Lower Resp Infection - Diagnoses Provider Diagnoses: Bronchitis Discharge ED - Sign-Out/Discharge Documenting (check all that apply): Patient Departure - Discharge Plan Condition: Good Disposition: HOME Prescriptions: Azithromycin TAB* [Zithromax TAB (Z-CORINE) 250 mg #6 tabs] 250 mg PO DAILY #4 tab predniSONE TAB* [Deltasone TAB*] 50 mg PO DAILY #4 tab Patient Education Materials: Acute Bronchitis (ED) Referrals: [facility] [Outside] Additional Instructions: Use inhaler up to two puffs every 4 hours for cough and wheezing Take steroid once a day for 4 more days starting tomorrow Take antibiotic once daily starting tomorrow for 4 days Take Tylenol or ibuprofen for pain every 6 hours Follow up with primary within 5 days Return to ED if develop any new or worsening symptoms - Billing Disposition and Condition Condition: GOOD Disposition: Home
[2019-04-16] MEDS ORDERED: Azithromycin TAB* 250 MG PO ONE (23:12)
[2019-04-16] MEDS ORDERED: A lbuterol Hfa (PREPAK) 1 MDI - ED TAKE HOME DISPENSING ONLY INHH ONE (23:14)
[2019-04-16 23:36] VITALS: BP 154/67
== END 2019-04-16 23:34 | disposition home or self-care (01) ==
LOC: ED 21:56
DX: J40 Bronchitis, not specified as acute or chronic (principal); Z87.891 Personal history of nicotine dependence
CPT/HCPCS: 71046; 99283; A9270-GY; J8540

== ENCOUNTER 2023-11-03 23:04 | Observation (INO) ==
[2023-11-03 23:37] LABS: ABS Lymphocytes 2.1 10^3/uL (1.0-4.8); ABS Monocytes 0.5 10^3/uL (0.0-1.1); ABS Nucleated RBC 0.01 10^3/ul; Eosinophil % 0.2 %; Hematocrit 45.2 % (38-53); Hemoglobin 15.3 g/dL (13.2-16.3); Lymphocyte % 23.8 %; Mean Corpuscular Hemoglobin 29.2 pg (27-33); Mean Platelet Volume 8.3 fL (7.5-11.2); Nucleated Red Blood Cells % 0.1 %/100WBC (0.0-0.8); Platelet Count 226 10^3/uL (150-450); Red Blood Count 5.26 10^6/uL (4.06-5.63); Red Cell Distribution Width 13.5 % (12-17); White Blood Count 8.7 10^3/uL (3.6-10.2)
[2023-11-03 23:49] LABS: INR 1.02 (0.83-1.13)
[2023-11-04] MEDS: Lactated Ringers 1000 ml BAG 1,000 ML IV ONE (00:33)
[2023-11-04 01:07] LABS: High Sensitivity Troponin 1 Hr 77 pg/mL (<20)
[2023-11-04 01:09] LABS: Albumin 4.9 g/dL (3.2-5.2); Albumin/Globulin Ratio 2.2 (1-3); Creatinine, Serum 1.49 mg/dL (0.67-1.17); Globulin 2.2 g/dL (2-4); Potassium 3.9 mmol/L (3.5-5.0); Total Bilirubin 0.6 mg/dL (0.2-1.0); Total Protein 7.1 g/dL (6.4-8.9); eGFR CKD-EPI 63.9 (>60)
[2023-11-04 03:34] LABS: High Sensitivity Troponin 3 Hr 64 pg/mL (<20)
[2023-11-04] MEDS ORDERED: Levalbuterol HFA INHALER MDI INH PRN (09:07)
[2023-11-04 10:26] LABS: Calcium 9.4 mg/dL (8.6-10.3); Creatinine, Serum 1.02 mg/dL (0.67-1.17); Magnesium 2.1 mg/dL (1.9-2.7); Potassium 3.8 mmol/L (3.5-5.0); eGFR CKD-EPI 100.8 (>60)
[2023-11-04 11:10] LABS: HDL Cholesterol 35.8 mg/dL
[2023-11-04] MEDS: Potassium Chlor 20 meq TAB.ER PO ONE (11:14)
[2023-11-04 12:39] LABS: ABS Eosinophils 0.1 10^3/uL (0.0-0.5); ABS Lymphocytes 2.1 10^3/uL (1.0-4.8); ABS Monocytes 0.4 10^3/uL (0.0-1.1); ABS Nucleated RBC 0.01 10^3/ul; Eosinophil % 1.5 %; Hematocrit 44.4 % (38-53); Lymphocyte % 46.3 %; Mean Corpuscular Hemoglobin 29.4 pg (27-33); Mean Corpuscular Hgb Conc 33.8 g/dL (31-36); Mean Corpuscular Volume 86.9 fL (80-97); Mean Platelet Volume 8.3 fL (7.5-11.2); Nucleated Red Blood Cells % 0.1 %/100WBC (0.0-0.8); Platelet Count 212 10^3/uL (150-450); Red Cell Distribution Width 13.6 % (12-17); White Blood Count 4.6 10^3/uL (3.6-10.2)
[2023-11-04 13:45] VITALS: BP 140/68
[2023-11-04] MEDS ORDERED: Mometasone/Formoter 100/5 MDI INH SCH (19:00)
[2023-11-04 20:28] LABS: TSH Ultra Thyroid Stim Horm 1.74 mcIU/mL (0.34-5.60)
[2023-11-04 20:31] LABS: Free T3 2.9 pg/mL (2.5-3.9)
[2023-11-04 20:32] LABS: Free T4 0.87 ng/dL (0.61-1.12)
== END 2023-11-04 13:48 | disposition home or self-care (01) ==
LOC: EDHOLD 23:04 → ED 23:04 → SUATTDRO 11-04 04:51 → EDHOLD 11-04 13:47
PROVIDERS: ADMIT Internal Medicine; ATTEND Internal Medicine